=== PATIENT | male | born 1935 | race Caucasian/White ===

== ENCOUNTER → 2018-05-19 09:48 | Outpatient (CLI) | payer MEDICARE, SELFPAY ==
[2018-05-19 10:20] LABS: Add Manual Diff / Slide Review NO; Basophils Absolute Auto 0 /uL (0-100); Basophils Percent Auto 0.4 % (0-2); Eosinophils Absolute Auto 0 /uL (0-450); Eosinophils Percent Auto 0.6 % (2-4); Hematocrit 44.1 % (41-53); Hemoglobin 14.4 g/dL (13.5-17.5); Lymphocytes Absolute Auto 600 /uL (1100-4500); Lymphocytes Percent Auto 10.1 % (25-40); Mean Corpuscular HGB Conc 32.7 % (30-36); Mean Corpuscular Hemoglobin 31.5 PG (26-34); Mean Corpuscular Volume 96.3 fL (80-100); Monocytes Absolute Auto 500 /uL (0-900); Monocytes Percent Auto 9.2 % (3-14); Neutrophils Absolute Auto 4600 /uL (1500-7000); Neutrophils Percent Auto 79.7 % (50-75); Platelet Count 158 X10^3/uL (150-400); Red Blood Cell Count 4.58 X10^6/uL (4.5-5.9); Red Cell Distribution Width 13.7 % (11.6-14.8); White Blood Cell Count 5.7 X10^3/uL (4.5-11.0)
[2018-05-19 10:31] LABS: Alanine Aminotransferase 44 IU/L (21-72); Albumin 4.1 g/dL (3.5-5.0); Albumin Globulin Ratio 1.5 (1.0-2.8); Alkaline Phosphatase 67 U/L (38-126); Aspartate Aminotransferase 40 IU/L (17-59); BUN Creatinine Ratio 22.5 (6-22); Bilirubin Total 0.9 mg/dL (0.2-1.3); Blood Urea Nitrogen 18 mg/dL (9-20); Calcium 8.9 mg/dL (8.4-10.2); Carbon Dioxide 26 mmol/L (22-32); Chloride 103 mmol/L (98-107); Cholesterol 120 mg/dL (140-199); Estimated Glomerular Filt Rate > 60.0 mL/min (>60); Globulin 2.7 g/dL (1.7-4.1); Glucose 116 mg/dL (80-110); HDL Cholesterol 74 mg/dL (40-60); HEMOLYSIS < 15 (0-50); LDL Cholesterol Calculated 34 mg/dL (<100); Potassium 4.4 mmol/L (3.4-5.1); Sodium 138 mmol/L (137-145); Total Protein 6.8 g/dL (6.3-8.2); Triglycerides 62 mg/dL (35-150)
[2018-05-19 11:02] LABS: Prostate Specific Antigen Scrn 1.22 ng/mL (0.1-4.0)
[2018-05-19 11:10] LABS: TSH w/ Reflex to FT4 1.17 uIU/mL (0.47-4.68)
== END ==
PROVIDERS: PCP Family Medicine; Visit Provider Family Medicine
DX: E78.5 Hyperlipidemia, unspecified (principal); I10 Essential (primary) hypertension; N40.0 Benign prostatic hyperplasia without lower urinary tract symptoms; Z12.5 Encounter for screening for malignant neoplasm of prostate
CPT/HCPCS: 36415; 80053; 80061; 84443; 85025; G0103

== ENCOUNTER 2019-01-10 06:23 | Day surgery (SDC) | payer MEDICARE, SELFPAY ==
--- NOTE | 2019-01-10 | PATH_ITS ---
[facility] Accession Number: [id number] . 01 Material submitted: . colon - COLON POLYP AT 30 CM . 01 Clinical history: . SCREENING COLONOSCOPY . 02 Diagnosis: Colon at 30 cm, Polyp: Tubular adenoma. MRV 01/11/2019 0913 Local . 02 Electronically signed: . Krishna Jorge MD, PhD, Pathologist NPI- [id number] . 01 Gross description: . COLON POLYP AT 30 CM: Received in formalin is 1 fragment(s) of lew, soft tissue measuring 0.4 x 0.2 x 0.2 cm which is entirely submitted and submitted entirely in 1 cassette(s) /[facility] 01/10/2019 1937 Local . 02 Pathologist provided ICD-10: D12.6 . 02 CPT . [id number] Performed at: 01 [facility] [address] [id number] MD Delta Teresa MD Phone: [phone] Performed at: 02 [facility] [address] [place], [place] [id number] MD Maria Fernanda Anders MD Phone: [phone]
[2019-01-10] MEDS: SODIUM CHLORIDE 0.9% 1,000 ML 200 ML IV (07:00)
[2019-01-10 07:20] VITALS: BP 172/85; PULSE 97; RESP 14; TEMP 36.2; O2SAT 98
--- NOTE | 2019-01-10 07:21 | PM.HP.1 ---
History of Present Illness History of Present Illness Date Patient Seen: 01/10/19 Time Patient Seen: 07:40 Chief complaint: [id number] SCREENING COLONOSCOPY Narrative: Patient presents for colorectal screening. He has a history of colon cancer sp resection right hemicolectomy 9 years ago. Last colonoscopy was 3 years ago postive for adenomatous polyp which was resected. On further history denies any recent gastrointestinal symptoms. No nausea, vomiting, abdominal pain, loss of appetite, unexplained weight loss, change in bowel habits, diarrhea, constipation, melena, hematochezia, or bright red blood per rectum. Patient History Surgical History History of vasectomy Status post colectomy Status post colectomy (01/07/10) Family History (Updated 04/19/14 @ 00:00 by Conversion Provider) Mother Colon cancer Social History marital status: Smoking Status: Former smoker (QUIT 1983) alcohol intake: current (1-2 A DAY ) substance use type: does not use Family & Social History Family History Mother Colon cancer Tobacco & Substance use: Smoking Status Former smoker alcohol intake current Meds Home Medications and Allergies Home Medications Medication Instructions Recorded Confirmed Type ascorbic acid (vitamin C) [Vitamin 1,000 mg PO BID #0 12/19/10 01/10/19 History C] aspirin 325 mg PO DAILY #0 12/19/10 01/10/19 History calcium carbonate [Calcium 600] 600 mg PO BID #0 12/19/10 01/10/19 History cholecalciferol (vitamin D3) 2,000 unit PO BID #0 12/19/10 01/10/19 History [Vitamin D3] niacin 1,000 mg PO QDAY #0 12/19/10 01/10/19 History omega 4-inm-ium-fish oil [Fish Oil] 1 cap PO BID #0 12/19/10 01/10/19 History lisinopril 40 mg tablet 40 mg PO DAILY #90 tab 08/16/18 01/10/19 Rx simvastatin 20 mg tablet 10 mg PO HS #45 tab 08/16/18 01/10/19 Rx Allergies Allergy/AdvReac Type Severity Reaction Status Date / Time No Known Drug Allergies Allergy Verified 06/02/18 08:42 Review of Systems Review of Systems ROS Unobtainable: All systems reviewed & are unremarkable except as noted in HPI and below Exam Narrative Exam Narrative: General-no acute distress, well nourished HEENT-moist mucous membranes, no scleral icterus Neck-supple, no lymphadenopathy Chest- non labored respirations, clear to auscultation bilaterally Cardiac-regular rate no peripheral edema Abdomen-soft, nontender, non distended Extremities-warm, well perfused Neurological-alert and oriented, no focal deficits Assessment & Plan Assessment and plan (1) Screening for colon cancer: Problem details: Patient is requiring colorectal screening. Colonoscopy is recommended. Technical details were discussed. Risks, benefits, alternatives explained. Risks including but not limited to sedation, aspiration, bleeding, pain, missed lesion, incomplete examination, need for further radiographic studies, colonic perforation, need for major abdominal surgery, and all attendant risks major surgery were discussed at length. All questions were answered to their satisfaction, and they voiced understanding. Current visit: Yes Status: Acute
--- NOTE | 2019-01-10 07:48 | PM.OP.ENDO ---
Operative Date/Time/Diagnoses Date of procedure: 01/10/19 Time of procedure: 07:48 Pre-op diagnosis: hx of coloncancer screening colonoscopy Post-op diagnosis: same Procedure & Clinicians Study performed: colonoscopy Same procedure as scheduled: Yes Indications: 83-year-old male history of colon cancer status post right hemicolectomy 9 years ago most recent colonoscopy 3 years ago that demonstrated an adenomatous polyp Surgeon: Manjeet Padgett Procedure Notes SCOAP/Timeout: performed Procedure in detail: Patient placed in left lateral decubitus position. Time out was performed. Procedural sedation was administered with Versed and Fentanyl. A rectal exam demonstrated no external hemorrhoids no internal masses. Colonoscopy scope was placed into the rectum and advanced through the colon to the ileocolonic anastamosis which was normal in its appearance. The scope was then slowly withdrawn examining colon thoroughly in all directions. A 1 cm polyp was identified at 30 cm from the anal verge and resected with hot snare. The site was hemostatic. The remainder of the colon was significant for diverticulosis. The scope was retroflexed within the rectum demonstrated grade 1 internal hemorrhoids. The rectum was desufflated and the scope removed. Patient tolerated procedure well. Scope withdrawal time: NA Sedation minutes: 21 Findings: other findings (ileocolonic anastamosis, quality of prep fair, 1cm polyp at 30 cm from verge) Specimen(s): other (polyp at 30 cm) Complications: none Post-procedure Recommendations: Colonscopy in 5 years Disposition: PACU
[2019-01-10] MEDS: fentaNYL 250 MCG/5 ML INJ IV (08:16)
[2019-01-10] MEDS: MIDAZOLAM 5 MG/5 ML VIAL IV (08:17)
[2019-01-10 08:21] VITALS: BP 107/60; PULSE 103; RESP 13; TEMP 37.6; O2SAT 98
[2019-01-10 08:23] VITALS: BP 108/73; PULSE 102; RESP 10; O2SAT 96
[2019-01-10 08:28] VITALS: BP 102/65; PULSE 97; RESP 16; O2SAT 97
[2019-01-10 08:34] VITALS: BP 101/64; PULSE 97; RESP 14; O2SAT 95
[2019-01-10 08:40] VITALS: BP 107/69; PULSE 93; RESP 16; TEMP 37.1; O2SAT 99
--- NOTE | 2019-01-10 11:19 | SUR.PHASEII ---
care assumed report recieved. warming measures intitiated per patients request for comfort.
== END 2019-01-10 08:56 | disposition home or self-care (01) ==
PROVIDERS: PCP Family Medicine; Visit Provider Surgery
PROC: 0DJD8ZZ Inspection of Lower Intestinal Tract, Via Natural or Artificial Opening Endoscopic (ICD-10-PCS; CPT 45378; principal; 2019-01-10 07:45)
DX: Z85.038 Personal history of other malignant neoplasm of large intestine (principal); Z90.49 Acquired absence of other specified parts of digestive tract; K57.30 Diverticulosis of large intestine without perforation or abscess without bleeding; D12.6 Benign neoplasm of colon, unspecified
CPT/HCPCS: 45385; 99152; J2250; J3010

== ENCOUNTER → 2019-05-30 08:08 | Outpatient (CLI) | payer MEDICARE, SELFPAY ==
[2019-05-30 08:59] LABS: Add Manual Diff / Slide Review NO; Basophils Absolute Auto 0 /uL (0-100); Basophils Percent Auto 0.8 % (0-2); Eosinophils Absolute Auto 200 /uL (0-450); Eosinophils Percent Auto 3.4 % (2-4); Hemoglobin 15.4 g/dL (13.5-17.5); Lymphocytes Absolute Auto 900 /uL (1100-4500); Lymphocytes Percent Auto 19.2 % (25-40); Mean Corpuscular HGB Conc 34.3 % (30-36); Mean Corpuscular Hemoglobin 32.2 PG (26-34); Mean Corpuscular Volume 93.9 fL (80-100); Monocytes Absolute Auto 500 /uL (0-900); Monocytes Percent Auto 10.3 % (3-14); Neutrophils Absolute Auto 3100 /uL (1500-7000); Neutrophils Percent Auto 66.3 % (50-75); Platelet Count 158 X10^3/uL (150-400); Red Blood Cell Count 4.79 X10^6/uL (4.5-5.9); White Blood Cell Count 4.7 X10^3/uL (4.5-11.0)
[2019-05-30 09:26] LABS: Alanine Aminotransferase 20 IU/L (<50); Albumin 4.3 g/dL (3.5-5.0); Albumin Globulin Ratio 1.5 (1.0-2.8); Alkaline Phosphatase 84 U/L (38-126); Aspartate Aminotransferase 29 IU/L (17-59); BUN Creatinine Ratio 23.3 (6-22); Bilirubin Total 0.8 mg/dL (0.2-1.3); Blood Urea Nitrogen 21 mg/dL (9-20); Calcium 9.7 mg/dL (8.4-10.2); Carbon Dioxide 29 mmol/L (22-32); Chloride 106 mmol/L (98-107); Cholesterol 160 mg/dL (140-199); Estimated Glomerular Filt Rate > 60.0 mL/min (>60); Globulin 2.9 g/dL (1.7-4.1); Glucose 102 mg/dL (80-110); HDL Cholesterol 64 mg/dL (40-60); HEMOLYSIS < 15 (0-50); LDL Cholesterol Calculated 76 mg/dL (<100); Potassium 5.3 mmol/L (3.4-5.1); Sodium 142 mmol/L (137-145); Total Protein 7.2 g/dL (6.3-8.2); Triglycerides 102 mg/dL (35-150)
== END ==
PROVIDERS: PCP Family Medicine; Referring Provider Family Medicine; Visit Provider Family Medicine
DX: E78.5 Hyperlipidemia, unspecified (principal); I10 Essential (primary) hypertension
CPT/HCPCS: 36415; 80053; 80061; 85025

== ENCOUNTER → 2019-11-30 08:08 | Outpatient (CLI) | payer MEDICARE, SELFPAY ==
[2019-11-30 10:26] LABS: BUN Creatinine Ratio 21.8 (6-22); Blood Urea Nitrogen 19 mg/dL (9-20); Calcium 9.2 mg/dL (8.4-10.2); Carbon Dioxide 27 mmol/L (22-32); Chloride 102 mmol/L (98-107); Cholesterol 134 mg/dL (140-199); Estimated Glomerular Filt Rate > 60.0 mL/min (>60); Glucose 105 mg/dL (80-110); HDL Cholesterol 67 mg/dL (40-60); HEMOLYSIS < 15 (0-50); LDL Cholesterol Calculated 49 mg/dL (<100); Potassium 4.8 mmol/L (3.4-5.1); Sodium 136 mmol/L (137-145); Triglycerides 89 mg/dL (35-150)
== END ==
PROVIDERS: PCP Family Medicine
DX: E78.5 Hyperlipidemia, unspecified (principal); I10 Essential (primary) hypertension
CPT/HCPCS: 36415; 80048; 80061